=== PATIENT | female | born 1995 | race Caucasian/White ===

== ENCOUNTER → 2020-09-12 | Outpatient (CLI) | payer MEDICAID | LOC: RESCLI 08:00 | PROVIDERS: ATTEND Social Worker Clinical | DX: G43.119 Migraine with aura, intractable, without status migrainosus (principal); J45.909 Unspecified asthma, uncomplicated; F31.9 Bipolar disorder, unspecified; M54.9 Dorsalgia, unspecified; Z13.31 Encounter for screening for depression; Z76.89 Persons encountering health services in other specified circumstances; Z72.0 Tobacco use; Z71.6 Tobacco abuse counseling ==

== ENCOUNTER 2021-08-19 11:21 | Emergency (ER) | payer OTHER ==
[~2021-08-19] VITALS: Ht 162.5 cm; Wt 76.2 kg
[2021-08-19] MEDS ORDERED: PREDNISONE20 M1 PO (15:08)
[2021-08-19] MEDS ORDERED: PROVENTIL HFA6.7 GM INH (15:08)
[2021-08-19] MEDS ORDERED: ZOFRAN4 MG PO (16:16)
[2021-08-19] MEDS ORDERED: IBUPROFEN600 MG PO (16:16)
== END 2021-08-19 15:11 | disposition home or self-care (01) ==
LOC: ED 11:21
DX: R05.9 Cough, unspecified (principal); Z20.822 Contact with and (suspected) exposure to COVID-19; Z88.6 Allergy status to analgesic agent

== ENCOUNTER 2022-02-24 12:37 | Emergency (ER) | payer OTHER ==
[~2022-02-24 12:37] MED LIST: IBUPROFEN600 MG PO; PREDNISONE20 M1 PO; PROVENTIL HFA6.7 GM INH; ZOFRAN4 MG PO
== END 2022-02-24 17:21 | disposition home or self-care (01) ==
LOC: ED 12:37
DX: S90.31XA Contusion of right foot, initial encounter (principal); Z88.6 Allergy status to analgesic agent; W20.8XXA Other cause of strike by thrown, projected or falling object, initial encounter; Y93.89 Activity, other specified; Y92.89 Other specified places as the place of occurrence of the external cause; Y99.8 Other external cause status

== ENCOUNTER 2022-08-01 14:22 | Emergency (ER) | payer OTHER ==
[~2022-08-01] VITALS: Ht 162.5 cm; Wt 64.4 kg
[2022-08-01] MEDS ORDERED: PRENATAL VITAM1 EAC4 PO (16:18)
[2022-08-01] MEDS ORDERED: UNISOM25 M1 PO (16:18)
[2022-08-01] MEDS ORDERED: VITAMIN B-625 M1 PO (16:18)
[2022-08-01 16:34] LABS: BILIRUBIN Negative (Negative); BLOOD Negative (Negative); CLARITY Cloudy (Clear); COLOR Yellow (Yellow); GLUCOSE Negative (Negative); KETONE 2+ (Negative); LEUKO ESTERASE 3+ (Negative); NITRITE Negative (Negative)
[2022-08-01 16:35] LABS: BASO # 0.1 10*3/uL (0.0-0.1); BASO % 1.1 % (0.0-1.0); EOS # 0.2 10*3/uL (0.0-0.4); EOS % 2.5 % (1.0-4.0); HEMATOCRIT 40.4 % (37.0-47.0); LYMPH # 2.4 10*3/uL (1.3-4.4); LYMPH % 25.9 % (27.0-41.0); MEAN CELL VOLUME 90.6 fl (81.0-99.0); MEAN CORPUSCULAR HGB 30.9 pg (27.0-31.0); MEAN CORPUSCULAR HGB CONC 34.2 g/dl (33.0-37.0); MEAN PLATELET VOLUME 9.1 fl (9.6-12.3); MONO # 0.5 10*3/uL (0.1-1.0); MONO % 5.6 % (3.0-9.0); NEUT # 5.9 10*3/uL (2.3-7.9); NEUT % 64.7 % (47.0-73.0); PLATELET COUNT AUTOMATED 387 10*3/uL (130-400); RED BLOOD COUNT 4.46 10*6/uL (4.10-5.10); RED CELL DISTRI WIDTH 12.8 % (0-14.5); WHITE BLOOD COUNT 9.1 10*3/uL (4.8-10.8)
[2022-08-01 16:56] LABS: ALKALINE PHOSPHATASE 72 U/L (45-117); BUN 6 mg/dl (7-24); CHLORIDE 110 mmol/L (98-107); CREATININE 0.53 mg/dL (0.55-1.02); LIPASE 145 U/L (73-393); POTASSIUM 3.1 mmol/L (3.5-5.1); SGOT/AST 10 IU/L (3-35); SGPT/ALT 12 U/L (12-78); SODIUM 139 mmol/L (136-145); TOTAL PROTEIN 7.8 gm/dL (6.4-8.2)
[2022-08-01 17:04] LABS: BACTERIA 2+; EPITHELIAL CELLS TNTC; MUCOUS 1+; WBC 21-30 wbc/hpf (0-5)
== END 2022-08-01 16:31 | disposition home or self-care (01) ==
LOC: ED 14:22
PROVIDERS: Emergency Medicine
DX: O21.0 Mild hyperemesis gravidarum (principal); Z20.822 Contact with and (suspected) exposure to COVID-19; R50.9 Fever, unspecified; Z3A.01 Less than 8 weeks gestation of pregnancy; Z88.5 Allergy status to narcotic agent; Z88.6 Allergy status to analgesic agent; Z79.899 Other long term (current) drug therapy

== ENCOUNTER 2022-08-11 15:25 | Emergency (ER) | payer OTHER ==
[~2022-08-11] VITALS: Ht 162.5 cm; Wt 62.1 kg
[~2022-08-11 15:25] MED LIST changes: +PRENATAL VITAM1 EAC4 PO; +UNISOM25 M1 PO; +VITAMIN B-625 M1 PO
[2022-08-11 15:58] LABS: BASO # 0.1 10*3/uL (0.0-0.1); BASO % 0.7 % (0.0-1.0); EOS # 0.2 10*3/uL (0.0-0.4); EOS % 2.4 % (1.0-4.0); HEMATOCRIT 38.8 % (37.0-47.0); LYMPH # 1.7 10*3/uL (1.3-4.4); LYMPH % 18.6 % (27.0-41.0); MEAN CELL VOLUME 88.8 fl (81.0-99.0); MEAN CORPUSCULAR HGB 30.9 pg (27.0-31.0); MEAN CORPUSCULAR HGB CONC 34.8 g/dl (33.0-37.0); MONO # 0.5 10*3/uL (0.1-1.0); MONO % 5.1 % (3.0-9.0); NEUT # 6.5 10*3/uL (2.3-7.9); NEUT % 72.8 % (47.0-73.0); PLATELET COUNT AUTOMATED 333 10*3/uL (130-400); RED BLOOD COUNT 4.37 10*6/uL (4.10-5.10); RED CELL DISTRI WIDTH 12.6 % (0-14.5)
[2022-08-11 16:19] LABS: ALKALINE PHOSPHATASE 59 U/L (45-117); BUN 7 mg/dl (7-24); CHLORIDE 106 mmol/L (98-107); CREATININE 0.51 mg/dL (0.55-1.02); SGOT/AST 9 IU/L (3-35); SGPT/ALT 11 U/L (12-78); SODIUM 136 mmol/L (136-145); TOTAL PROTEIN 7.3 gm/dL (6.4-8.2)
[2022-08-11 17:02] LABS: BILIRUBIN Negative (Negative); BLOOD 1+ (Negative); CLARITY Clear (Clear); COLOR Yellow (Yellow); GLUCOSE Negative (Negative); KETONE 1+ (Negative); LEUKO ESTERASE 1+ (Negative); NITRITE Negative (Negative); PH 7.5 (4.5-8.0); SPECIFIC GRAVITY 1.015 (1.001-1.030)
[2022-08-11 17:41] LABS: BACTERIA 1+; RBC 0-2 rbc/hpf (0-2)
[2022-08-11] MEDS ORDERED: K-TAB20 MEQ PO (17:49)
== END 2022-08-11 17:55 | disposition home or self-care (01) ==
LOC: ED 15:25
PROVIDERS: Physician Assistant
DX: O41.8X10 Other specified disorders of amniotic fluid and membranes, first trimester, not applicable or unspecified (principal); O46.8X1 Other antepartum hemorrhage, first trimester; O26.891 Other specified pregnancy related conditions, first trimester; O21.9 Vomiting of pregnancy, unspecified; E87.6 Hypokalemia; Z88.6 Allergy status to analgesic agent; Y92.89 Other specified places as the place of occurrence of the external cause

== ENCOUNTER → 2024-05-22 | Outpatient (CLI) | payer OTHER ==
[~2024-05-22] MED LIST changes: +K-TAB20 MEQ PO
[2024-05-22 10:13] LABS: HEMATOCRIT 36.8 % (37.0-47.0); MEAN CELL VOLUME 90.2 fl (81.0-99.0); MEAN CORPUSCULAR HGB 27.9 pg (27.0-31.0); MEAN PLATELET VOLUME 9.2 fl (9.6-12.3); RED BLOOD COUNT 4.08 10*6/uL (4.10-5.10); RED CELL DISTRI WIDTH 13.6 % (0-14.5); WHITE BLOOD COUNT 5.9 10*3/uL (4.8-10.8)
[2024-05-22 10:37] LABS: ALKALINE PHOSPHATASE 64 U/L (46-116); BUN 9 mg/dl (9-23); CHLORIDE 110 mmol/L (98-107); CHOLESTEROL 160 mg/dL (<200); FREE T4 0.94 ng/dl (0.89-1.76); LDL CHOLESTEROL 118 mg/dL (9-159); POTASSIUM 3.8 mmol/L (3.4-5.1); TOTAL PROTEIN 6.9 gm/dL (6.0-8.0); TRIGLYCERIDES 48 mg/dl (<150)
[2024-05-22 10:46] LABS: SGPT/ALT < 7 U/L (5-49)
[2024-05-22 11:27] LABS: VITAMIN D, 25-HYDROXY 47.9 ng/mL (30-100)
== END | disposition home or self-care (01) ==
LOC: LAB 09:59
PROVIDERS: ATTEND Family Medicine
DX: I10 Essential (primary) hypertension (principal); R53.83 Other fatigue; E55.9 Vitamin D deficiency, unspecified; K21.9 Gastro-esophageal reflux disease without esophagitis; R10.9 Unspecified abdominal pain; R42 Dizziness and giddiness

== ENCOUNTER 2024-06-14 14:12 | Emergency (ER) | payer OTHER ==
[~2024-06-14] VITALS: Wt 51.3 kg
[~2024-06-14 14:12] MED LIST changes: +CARAFATE1 G1 PO
[2024-06-14 14:50] LABS: BASO # 0.1 10*3/uL (0.0-0.1); BASO % 0.8 % (0.0-1.0); EOS # 0.3 10*3/uL (0.0-0.4); EOS % 2.9 % (1.0-4.0); HEMATOCRIT 37.1 % (37.0-47.0); LYMPH % 19.3 % (27.0-41.0); MEAN CELL VOLUME 91.6 fl (81.0-99.0); MEAN CORPUSCULAR HGB 28.6 pg (27.0-31.0); MEAN CORPUSCULAR HGB CONC 31.3 g/dl (33.0-37.0); MEAN PLATELET VOLUME 9.2 fl (9.6-12.3); MONO # 0.5 10*3/uL (0.1-1.0); MONO % 4.5 % (3.0-9.0); NEUT # 7.4 10*3/uL (2.3-7.9); NEUT % 72.3 % (47.0-73.0); PLATELET COUNT AUTOMATED 321 10*3/uL (130-400); RED BLOOD COUNT 4.05 10*6/uL (4.10-5.10); RED CELL DISTRI WIDTH 14.9 % (0-14.5); WHITE BLOOD COUNT 10.2 10*3/uL (4.8-10.8)
[2024-06-14 15:08] LABS: BUN 10 mg/dl (9-23); CHLORIDE 108 mmol/L (98-107); POTASSIUM 3.1 mmol/L (3.4-5.1)
[2024-06-14] MEDS ORDERED: POTASSIUM CHLORIDE 20 MEQ TAB PO ONE (15:15)
== END 2024-06-14 15:30 | disposition home or self-care (01) ==
LOC: ED 14:12
PROVIDERS: Physician Assistant Medical
DX: R55 Syncope and collapse (principal); D64.9 Anemia, unspecified; F41.9 Anxiety disorder, unspecified; J45.909 Unspecified asthma, uncomplicated; Z88.5 Allergy status to narcotic agent; Z88.8 Allergy status to other drugs, medicaments and biological substances

== ENCOUNTER → 2024-07-03 | Outpatient (CLI) | payer OTHER | END | disposition home or self-care (01) | LOC: US 10:30 → LAB 10:31 | PROVIDERS: ATTEND Nurse Practitioner Women's Health | DX: N83.292 Other ovarian cyst, left side (principal); D50.9 Iron deficiency anemia, unspecified; N92.0 Excessive and frequent menstruation with regular cycle; N85.9 Noninflammatory disorder of uterus, unspecified; R93.89 Abnormal findings on diagnostic imaging of other specified body structures ==

== ENCOUNTER 2024-10-13 13:18 | Emergency (ER) | payer OTHER ==
[~2024-10-13] VITALS: Ht 160 cm; Wt 52.6 kg
[2024-10-13] MEDS ORDERED: AMOXICILLIN500 M2 PO (13:43)
[2024-10-13] MEDS ORDERED: NYSTATIN CREAM15 GM T ×2 (13:43→14:05)
[2024-10-13] MEDS ORDERED: FAMOTIDINE20 M1 PO (13:43)
[2024-10-13] MEDS ORDERED: OMEPRAZOLE40 MG PO (13:43)
[2024-10-13] MEDS ORDERED: IBU800 M2 PO (14:05)
[2024-10-13] MEDS ORDERED: FLUONAZOLE150 M1 PO (14:05)
== END 2024-10-13 14:22 | disposition home or self-care (01) ==
LOC: ED 13:18
DX: B37.31 Acute candidiasis of vulva and vagina (principal); D64.9 Anemia, unspecified; J45.909 Unspecified asthma, uncomplicated; Z88.5 Allergy status to narcotic agent; Z88.8 Allergy status to other drugs, medicaments and biological substances

== ENCOUNTER 2024-11-10 06:23 | Emergency (ER) | payer OTHER ==
[~2024-11-10] VITALS: Ht 160 cm; Wt 53.1 kg
[~2024-11-10 06:23] MED LIST changes: +AMOXICILLIN500 M2 PO; +FAMOTIDINE20 M1 PO; +FLUONAZOLE150 M1 PO; +IBU800 M2 PO; +NYSTATIN CREAM15 GM T; +OMEPRAZOLE40 MG PO
[2024-11-10] MEDS ORDERED: Acetaminophen/Oxycodone 5 MG/325 MG TABLET PO ONE (07:00)
[2024-11-10] MEDS ORDERED: LIDOCAINE 5% ANORECTAL CREAM T ONE (07:05)
[2024-11-10 07:23] LABS: BILIRUBIN Negative (Negative); BLOOD Negative (Negative); CLARITY Cloudy (Clear); COLOR Yellow (Yellow); GLUCOSE Negative (Negative); KETONE Negative (Negative); LEUKO ESTERASE 3+ (Negative); NITRITE Negative (Negative)
[2024-11-10 08:14] LABS: MUCOUS 1+
[2024-11-10 08:15] LABS: EPITHELIAL CELLS 21-30; RBC 0-2 rbc/hpf (0-2); YEAST TRACE
[2024-11-10 08:16] LABS: BACTERIA 3+; WBC 41-50 wbc/hpf (0-5)
[2024-11-10] MEDS ORDERED: PREDNISONE20 M1 PO (08:25)
[2024-11-10] MEDS ORDERED: AMOX-CLAV 875-1 EACH PO (08:25)
== END 2024-11-10 08:39 | disposition home or self-care (01) ==
LOC: ED 06:23
PROVIDERS: Internal Medicine
DX: N89.8 Other specified noninflammatory disorders of vagina (principal); N39.0 Urinary tract infection, site not specified

== ENCOUNTER 2024-12-13 00:58 | Emergency (ER) | payer OTHER ==
[~2024-12-13] VITALS: Ht 160 cm; Wt 52.6 kg
[~2024-12-13 00:58] MED LIST changes: +AMOX-CLAV 875-1 EACH PO
[2024-12-13 01:37] LABS: BILIRUBIN Negative (Negative); BLOOD Negative (Negative); CLARITY Clear (Clear); COLOR Dark Yellow (Yellow); GLUCOSE Negative (Negative); KETONE Negative (Negative); LEUKO ESTERASE 1+ (Negative); NITRITE Positive (Negative); SPECIFIC GRAVITY <= 1.005 (1.001-1.030)
[2024-12-13 01:48] LABS: BASO # 0.1 10*3/uL (0.0-0.1); BASO % 1.1 % (0.0-1.0); EOS # 0.4 10*3/uL (0.0-0.4); EOS % 5.1 % (1.0-4.0); HEMATOCRIT 35.8 % (37.0-47.0); MEAN CELL VOLUME 93.7 fl (81.0-99.0); MEAN CORPUSCULAR HGB 30.9 pg (27.0-31.0); MEAN PLATELET VOLUME 9.1 fl (9.6-12.3); MONO # 0.5 10*3/uL (0.1-1.0); NEUT # 3.3 10*3/uL (2.3-7.9); NEUT % 44.6 % (47.0-73.0); PLATELET COUNT AUTOMATED 276 10*3/uL (130-400); RED BLOOD COUNT 3.82 10*6/uL (4.10-5.10); RED CELL DISTRI WIDTH 13.1 % (0-14.5); WHITE BLOOD COUNT 7.4 10*3/uL (4.8-10.8)
[2024-12-13 01:58] LABS: BACTERIA TRACE
[2024-12-13 02:09] LABS: BUN 10 mg/dl (9-23); CHLORIDE 109 mmol/L (98-107)
[2024-12-13] MEDS ORDERED: Ondansetron Hydrochloride 4 MG TAB SL ONE (02:20)
[2024-12-13] MEDS ORDERED: Acetaminophen/Hydrocodone 5 MG/325 MG TABLET PO ONE (02:20)
== END 2024-12-13 02:33 | disposition home or self-care (01) ==
LOC: ED 00:58
PROVIDERS: Internal Medicine
DX: N39.0 Urinary tract infection, site not specified (principal); D64.9 Anemia, unspecified

== ENCOUNTER 2025-01-26 21:16 | Emergency (ER) | payer OTHER ==
[2025-01-26] MEDS ORDERED: SODIUM CHLORIDE 0.9% 1,000 ML IV ONE (21:45)
[2025-01-26] MEDS ORDERED: HYDROmorphONE Hydrochloride 0.5 MG/0.5 ML SYRINGE IV ONE (21:45)
[2025-01-26] MEDS ORDERED: Ondansetron Hydrochloride 4 MG/2 ML VIAL IV ONE (21:45)
[2025-01-26] MEDS ORDERED: IOHEXOL 300 MG/ML 100 ML VIAL IV ONE (22:00)
[2025-01-26 22:08] LABS: BASO # 0.1 10*3/uL (0.0-0.1); BASO % 1.3 % (0.0-1.0); EOS # 0.4 10*3/uL (0.0-0.4); EOS % 5.1 % (1.0-4.0); HEMATOCRIT 35.4 % (37.0-47.0); MEAN CELL VOLUME 94.1 fl (81.0-99.0); MEAN CORPUSCULAR HGB 30.3 pg (27.0-31.0); MEAN CORPUSCULAR HGB CONC 32.2 g/dl (33.0-37.0); MEAN PLATELET VOLUME 8.8 fl (9.6-12.3); MONO # 0.4 10*3/uL (0.1-1.0); MONO % 6.2 % (3.0-9.0); NEUT # 3.8 10*3/uL (2.3-7.9); NEUT % 53.6 % (47.0-73.0); PLATELET COUNT AUTOMATED 299 10*3/uL (130-400); RED BLOOD COUNT 3.76 10*6/uL (4.10-5.10); RED CELL DISTRI WIDTH 12.7 % (0-14.5); WHITE BLOOD COUNT 7.1 10*3/uL (4.8-10.8)
[2025-01-26 22:29] LABS: BILIRUBIN Negative (Negative); BLOOD Negative (Negative); CLARITY Clear (Clear); COLOR Orange (Yellow); GLUCOSE Negative (Negative); KETONE Negative (Negative); LEUKO ESTERASE 2+ (Negative); NITRITE Negative (Negative); SPECIFIC GRAVITY 1.025 (1.001-1.030); UROBILINOGEN 0.2 E.U./dl (0.0-1.0)
[2025-01-26 22:32] LABS: ALKALINE PHOSPHATASE 64 U/L (46-116); BUN 14 mg/dl (9-23); CHLORIDE 108 mmol/L (98-107); POTASSIUM 4.6 mmol/L (3.4-5.1); TOTAL PROTEIN 6.5 gm/dL (6.0-8.0); URIC ACID 2.9 mg/dL (3.1-7.8)
[2025-01-26 22:34] LABS: SGPT/ALT < 7 U/L (5-49)
[2025-01-26 22:44] LABS: BACTERIA 1+; EPITHELIAL CELLS 16-20; RBC 0-2 rbc/hpf (0-2); WBC 31-40 wbc/hpf (0-5)
[2025-01-27] MEDS ORDERED: OMNICEF300 MG PO (01:16)
[2025-01-27] MEDS ORDERED: CEFDINIR 300 MG CAP PO ONE (01:20)
[2025-01-27] MEDS ORDERED: Acetaminophen/Hydrocodone 5 MG/325 MG TABLET PO ONE (01:20)
== END 2025-01-27 01:34 | disposition home or self-care (01) ==
LOC: ED 21:16
PROVIDERS: Nurse Practitioner Family
DX: N83.02 Follicular cyst of left ovary (principal); N39.0 Urinary tract infection, site not specified; K21.9 Gastro-esophageal reflux disease without esophagitis; Z87.42 Personal history of other diseases of the female genital tract; Z88.5 Allergy status to narcotic agent; Z88.6 Allergy status to analgesic agent; Z79.899 Other long term (current) drug therapy

== ENCOUNTER 2025-04-06 20:34 | Emergency (ER) | payer OTHER ==
[~2025-04-06] VITALS: Ht 160 cm; Wt 53.5 kg
[~2025-04-06 20:34] MED LIST changes: +OMNICEF300 MG PO
[2025-04-06] MEDS ORDERED: SODIUM CHLORIDE 0.9% 1,000 ML IV ONE (21:00)
[2025-04-06] MEDS ORDERED: Ondansetron Hydrochloride 4 MG/2 ML VIAL IV ONE (21:00)
[2025-04-06 21:09] LABS: BASO # 0.1 10*3/uL (0.0-0.1); BASO % 1.6 % (0.0-1.0); EOS # 0.3 10*3/uL (0.0-0.4); EOS % 3.9 % (1.0-4.0); MEAN CELL VOLUME 94.4 fl (81.0-99.0); MEAN CORPUSCULAR HGB 29.7 pg (27.0-31.0); MEAN PLATELET VOLUME 8.8 fl (9.6-12.3); MONO # 0.5 10*3/uL (0.1-1.0); MONO % 6.4 % (3.0-9.0); NEUT # 4.3 10*3/uL (2.3-7.9); NEUT % 55.5 % (47.0-73.0); NUCLEATED RED BLOOD CELL 0.0 % (0.0-0.0); NUCLEATED RED BLOOD CELL 0.0 10*3/uL (0.0-0.0); PLATELET COUNT AUTOMATED 319 10*3/uL (130-400); RED CELL DISTRI WIDTH 12.5 % (0-14.5)
[2025-04-06] MEDS ORDERED: IOHEXOL 300 MG/ML 100 ML VIAL IV ONE (21:15)
[2025-04-06 21:28] LABS: BUN 7 mg/dl (9-23)
[2025-04-06 21:34] LABS: BILIRUBIN Negative (Negative); BLOOD Negative (Negative); CLARITY Clear (Clear); COLOR Yellow (Yellow); KETONE Trace (Negative); LEUKO ESTERASE 1+ (Negative); NITRITE Negative (Negative); PH 6.0 (4.5-8.0); SPECIFIC GRAVITY >= 1.030 (1.001-1.030); UROBILINOGEN 1.0 E.U./dl (0.0-1.0)
[2025-04-06 22:02] LABS: BACTERIA 1+; MUCOUS 3+; YEAST 2+
[2025-04-07] MEDS ORDERED: HYDROmorphONE Hydrochloride 0.5 MG/0.5 ML SYRINGE IV ONE (01:20)
[2025-04-07] MEDS ORDERED: Ciprofloxacin Hydrochloride 500 MG TAB PO ONE (01:20)
[2025-04-07] MEDS ORDERED: Acetaminophen/Hydrocodone 5 MG/325 MG TABLET PO ONE (01:30)
[2025-04-07] MEDS ORDERED: CIPRO500 MG PO (01:32)
[2025-04-07] MEDS ORDERED: Ondansetron4 MG PO (21:11)
[2025-04-07] MEDS ORDERED: PERCOCET 5-3251 EACH PO (21:11)
== END 2025-04-07 01:40 | disposition home or self-care (01) ==
LOC: ED 20:34
PROVIDERS: Nurse Practitioner Family
DX: N83.202 Unspecified ovarian cyst, left side (principal); D64.9 Anemia, unspecified; N39.0 Urinary tract infection, site not specified; Z79.899 Other long term (current) drug therapy; Z87.442 Personal history of urinary calculi; Z87.42 Personal history of other diseases of the female genital tract; Z88.5 Allergy status to narcotic agent; Z88.8 Allergy status to other drugs, medicaments and biological substances

== ENCOUNTER 2025-04-07 18:32 | Emergency (ER) | payer OTHER ==
[~2025-04-07 18:32] MED LIST changes: +CIPRO500 MG PO
[2025-04-07] MEDS ORDERED: SODIUM CHLORIDE 0.9% 500 ML IV ONE (20:00)
[2025-04-07] MEDS ORDERED: Ondansetron Hydrochloride 4 MG/2 ML VIAL IV ONE ×2 (20:00→21:05)
[2025-04-07 20:10] LABS: BASO # 0.1 10*3/uL (0.0-0.1); BASO % 1.8 % (0.0-1.0); EOS # 0.3 10*3/uL (0.0-0.4); EOS % 3.8 % (1.0-4.0); MEAN CELL VOLUME 94.1 fl (81.0-99.0); MEAN CORPUSCULAR HGB 30.2 pg (27.0-31.0); MEAN PLATELET VOLUME 8.9 fl (9.6-12.3); MONO # 0.5 10*3/uL (0.1-1.0); MONO % 7.4 % (3.0-9.0); NEUT # 3.7 10*3/uL (2.3-7.9); NEUT % 51.5 % (47.0-73.0); NUCLEATED RED BLOOD CELL 0.0 % (0.0-0.0); NUCLEATED RED BLOOD CELL 0.0 10*3/uL (0.0-0.0); PLATELET COUNT AUTOMATED 319 10*3/uL (130-400); RED CELL DISTRI WIDTH 12.6 % (0-14.5)
[2025-04-07 20:30] LABS: BUN < 5 mg/dl (9-23)
[2025-04-07] MEDS ORDERED: diazePAM 5 MG TAB PO ONE ×2 (21:05→21:15)
[2025-04-07] MEDS ORDERED: Ondansetron4 MG PO (21:11)
[2025-04-07] MEDS ORDERED: PERCOCET 5-3251 EACH PO (21:11)
[2025-04-07] MEDS ORDERED: Acetaminophen/Oxycodone 5 MG/325 MG TABLET PO ONE (21:15)
[2025-04-07] MEDS ORDERED: Ondansetron 4 MG 2 TAB ED PACK PO SCH (21:15)
== END 2025-04-07 21:22 | disposition home or self-care (01) ==
LOC: ED 18:32
PROVIDERS: Emergency Medicine
DX: N92.1 Excessive and frequent menstruation with irregular cycle (principal); N39.0 Urinary tract infection, site not specified; Z88.5 Allergy status to narcotic agent; Z88.6 Allergy status to analgesic agent; Z79.899 Other long term (current) drug therapy

== ENCOUNTER → 2025-04-11 | Outpatient (CLI) | payer OTHER ==
[~2025-04-11] MED LIST changes: +Ondansetron4 MG PO; +PERCOCET 5-3251 EACH PO
== END | disposition home or self-care (01) ==
LOC: US 11:00
PROVIDERS: ATTEND Family Medicine
DX: N92.0 Excessive and frequent menstruation with regular cycle (principal); R10.2 Pelvic and perineal pain